=== PATIENT | female | born 1955 | race Caucasian/White ===

== ENCOUNTER 2021-01-30 21:09 | Inpatient (IN) | payer MEDICARE ==
[~2021-01-30] VITALS: Ht 162.6 cm; Wt 117.9 kg
--- NOTE | ~2021-01-30 | OP ---
PATIENT NAME: ISABELL FIELDS MEDICAL RECORD: [id number] :51 LOCATION:[facility] [id number] ADMISSION DATE:01/31/21 SURGEON: PETRA BRUCE MD DATE OF OPERATION: 02/01/2021 PREOPERATIVE DIAGNOSIS: Left proximal humerus fracture (4-part). POSTOPERATIVE DIAGNOSIS: Left proximal humerus fracture (4-part). PROCEDURE PERFORMED: Left reverse total shoulder arthroplasty. INDICATIONS FOR THE PROCEDURE: Ms. Fields is a 65-year-old female who fell this past weekend and sustained a comminuted fracture of the proximal humerus. X-rays and CT scan showed evidence of a 4-part fracture with displacement of the tuberosities. She was admitted and arrangements made for her to come to the operating room today for ORIF of the fracture versus reverse total shoulder arthroplasty. Risks, benefits and alternatives of surgery were discussed with the patient and consent was obtained. DESCRIPTION OF THE PROCEDURE: The patient was met in the holding area where her identity and confirmation of procedure was performed. The left upper extremity was marked. She was taken to the operating room where she was placed supine on the operating table and anesthesia was administered. She was then positioned in the beach chair position and extremities were positioned and padded appropriately. The left upper extremity was prepped and draped in a sterile fashion. The patient received preoperative antibiotics and timeout was performed before initiating the case. On initiation of the case, a deltopectoral approach was utilized for exposure. We incised through skin and subcutaneous tissues, dissecting down to the cephalic vein. The interval between the deltoid and pectoralis muscle was then identified and utilized for a deep exposure. We continued our dissection down to the proximal humerus. There was noted to be a significant comminution of the tuberosities with impaction of the shaft into the humeral head. There was displacement of the humeral head as well. Tissue from around this area was debrided including the fracture hematoma. I attempted to achieve a reduction, but given the amount of comminution, I was unsuccessful and we therefore elected to proceed with a reverse total shoulder arthroplasty. Humeral head was removed as well as pieces of the tuberosities. Tissue from around the inferior border of the glenoid around the edge of the shaft was released to allow for full exposure of our glenoid. Once the bony pieces were removed, sutures were placed in the superior and anterior aspect of the rotator cuff. Our shaft was then retracted and the arm was positioned in externally rotated position as we began preparing the shaft. We reamed up sequentially to a size [address] 8 humeral fracture stem. We then turned our attention to the glenoid, retractors were repositioned around the glenoid, tissue from around the edges were debrided. We then placed our central guidewire using the alignment guide and overreamed. Our glenosphere baseplate was then placed and tapped into position securely tightened down with the screw. We then placed screws superior and inferior as well. The anterior and posterior screws did not have much bony bite and therefore were left open. Our glenosphere was then attached and placed in the inferior offset position. It was tapped into place, had good fit at the glenoid. We then turned our attention back to the humerus. Our trial stem was placed and we attempted to trial with the baseplate, but there was a little bit too much tension. It was sitting at 5 and we therefore elected to go ahead and place our fracture stem and seated at a 3 position, which would then give us OPERATIVE REPORT [id number] ISABELL FIELDS more ability to reduce the shoulder and yet still have good stability. The humeral shaft was prepared using the brush and drying sponge. Cement was then placed into the shaft and our size 8 humeral stem was placed down to the level 3 and held in appropriate alignment while the cement was allowed to dry. Once the cement was dry, we then were able to trial it with a standard humeral tray starting with the neutral baseplate and then going up to a +3 at which point, we had good fit and stability at the glenosphere. This was our final component. The trial was removed and our baseplate was tapped into place. It was again reduced, had good fit and stability throughout range of motion. The shoulder was irrigated thoroughly with saline. Tissue from the rotator cuff superiorly and the subscapularis anteriorly were sutured back to the stem and tied down securely. A gram of vancomycin powder was then placed in the deep wound. The deltopectoral interval was closed with 2-0 Vicryl suture. The subcutaneous tissues were closed with Vicryl and the skin was closed with Monocryl. Prineo Dermabond dressing was placed and covered with a sterile dressing. The patient was placed into a sling, turned back over to anesthesia where she was awakened, extubated, and taken to recovery room in stable condition. POSTOPERATIVE PLAN: The patient is going to return to the floor for continued postoperative care. She needs to remain nonweightbearing on the left upper extremity with instructions for no shoulder range of motion at this time. She can come out of the sling for general hygiene and to perform elbow, wrist and hand range of motion. Physical therapy will be consulted to assist with mobility. PLAN: Home with the family upon discharge. COMPLICATIONS: None. ESTIMATED BLOOD LOSS: 400 mL. ANESTHESIA: General with peripheral nerve block. TRANSINT:[id number] Voice Confirmation ID: [id number] DOCUMENT ID: [id number] PETRA BRUCE MD CC: [id number] DICTATION DATE: 02/01/212118 IT ASSISTANT: 02/02/21 0504 [facility] [place] [id number] [place] [address]
[2021-01-30] MEDS ORDERED: HYDROCHLOROTH12.5 M1 PO (21:21)
[2021-01-30] MEDS ORDERED: UNKNOWN B/P MED (21:21)
[2021-01-30] MEDS ORDERED: ZOLOFT50 MG PO (21:22)
[2021-01-30] MEDS ORDERED: IRON (21:22)
[2021-01-30 22:46] LABS: BASOPHILS 0.2 % (0-2); EOSINOPHILS 0.9 % (0-7); HEMATOCRIT 35.5 % (36.0-48.0); HEMOGLOBIN 11.7 g/dL (12-16); IMMATURE GRANULOCYTES 0.3 % (0-5); LYMPHOCYTE ABS# 1.31 10x3/uL (1.18-3.74); LYMPHOCYTES 13.5 % (15-50); MCH 29.8 pg (26.0-34.0); MCV 90.6 fL (80.0-100.0); MEAN PLATELET VOLUME 8.3 fL (7.4-10.4); NEUTROPHIL ABS# 7.49 10x3/uL (1.56-6.13); NEUTROPHILS 77.1 % (40-80); PLATELET COUNT 200 10x3/uL (130-400); RBC 3.92 10x6/uL (4.00-5.40); RDW 14.6 % (11.5-14.5); WBC 9.7 10x3/uL (4.8-10.8)
[2021-01-30 22:52] LABS: ANION GAP 12.9 mmol/L (8-16); APTT 31.8 SECONDS (22.8-39.4); CALCIUM 8.8 mg/dL (8.5-10.1); CARBON DIOXIDE 26.4 mmol/L (21.0-32.0); CREATININE - SERUM 0.9 mg/dL (0.6-1.3); INR 1.06 (0.85-1.17); POTASSIUM - SERUM 3.3 mmol/L (3.5-5.1); PROTIME 12.8 SECONDS (11.6-15.0)
[2021-01-30 22:56] LABS: ALBUMIN 3.5 g/dL (3.4-5.0); BILIRUBIN - TOTAL 0.3 mg/dL (0.2-1.3); PROTEIN - SERUM 7.2 g/dL (6.4-8.2)
--- NOTE | 2021-01-30 23:06 | NUR ---
PATIENT'S DAUGHTER'S PHONE NUMBER [id number]
--- NOTE | 2021-01-31 01:37 | NUR ---
RECIEVED REPORT FROM IZABEL PRADO ASSUMED PT CARE
--- NOTE | 2021-01-31 02:20 | NUR ---
RECEIVED PT TO FLOOR VIA STRETCHER. PT AMBULATED FROM STRETCHER TO BED. LEFT SHOULDER SWOLLEN WITH IMPAIRED ROM. CHANGED PT INTO GOWN. PLACED SCD'S AND NON-SKID SOCKS ON PT. REVIEWED HOME MEDS AND HISTORY. PT AMBULATED TO BATHROOM INDEPENDENTLY AND VOIDED. PT IS ALERT & ORIENTED. RATE PAIN 4/10 AT THIS TIME. NO OTHER NEEDS. WILL CONTINUE TO MONITOR.
[2021-01-31] MEDS ORDERED: BENICAR20 MG PO (02:32)
[2021-01-31] MEDS ORDERED: FERROUS SULFAT325 MG PO (02:33)
[2021-01-31] MEDS ORDERED: TUMS X-STR300 MG PO (02:36)
[2021-01-31] MEDS ORDERED: ACETAMINOPHEN500 M1 PO (02:37)
[2021-01-31 03:14] VITALS: BP 109/50; Ht 162.6 cm; Wt 117.9 kg
[2021-01-31 05:07] VITALS: BP 143/77
[2021-01-31 07:04] LABS: ALBUMIN 3.4 g/dL (3.4-5.0); ALKALINE PHOSPHATASE 60 U/L (30-120); ALT (SGPT) 21 U/L (10-68); BILIRUBIN - TOTAL 0.59 mg/dL (0.2-1.3); CALC OSMOLALITY 270 mosm/kg (275-300); CALCIUM 8.4 mg/dL (8.5-10.1); CARBON DIOXIDE 20.6 mmol/L (21.0-32.0); CHLORIDE - SERUM 101 mmol/L (98-107); GLUCOSE 117 mg/dL (74-106); MAGNESIUM - SERUM 1.8 mg/dL (1.8-2.4); PHOSPHOROUS 3.4 mg/dL (2.5-4.9); PROTEIN - SERUM 6.7 g/dL (6.4-8.2); SODIUM 134 mmol/L (136-145); UREA NITROGEN 17 mg/dL (7-18)
[2021-01-31 07:06] LABS: BASOPHILS 0.1 % (0-2); EOSINOPHILS 0.4 % (0-7); HEMATOCRIT 32.4 % (36.0-48.0); HEMOGLOBIN 10.6 g/dL (12-16); IMMATURE GRANULOCYTES 0.2 % (0-5); LYMPHOCYTE ABS# 1.52 10x3/uL (1.18-3.74); MCH 29.9 pg (26.0-34.0); MCHC 32.7 g/dL (31.0-37.0); MCV 91.5 fL (80.0-100.0); MEAN PLATELET VOLUME 9.1 fL (7.4-10.4); MONOCYTES 8.9 % (2-11); NEUTROPHIL ABS# 6.54 10x3/uL (1.56-6.13); NEUTROPHILS 73.4 % (40-80); PLATELET COUNT 201 10x3/uL (130-400); RBC 3.54 10x6/uL (4.00-5.40); RDW 14.6 % (11.5-14.5); WBC 8.9 10x3/uL (4.8-10.8)
[2021-01-31 07:09] LABS: CREATININE - SERUM 0.6 mg/dL (0.6-1.3); POTASSIUM - SERUM 4.7 mmol/L (3.5-5.1); eGFR NON AFRICAN AMERICAN > 90 mL/min (90-120)
[2021-01-31 08:04] LABS: APTT 30.1 SECONDS (22.8-39.4); INR 1.14 (0.85-1.17); PROTIME 13.5 SECONDS (11.6-15.0)
[2021-01-31 09:17] VITALS: BP 152/94
[2021-01-31 12:04] VITALS: BP 156/69
[2021-01-31 16:49] VITALS: BP 157/75
--- NOTE | 2021-01-31 16:49 | NUR ---
URINE SENT TO THE LAB. EKG AND CONSENTS DONE AND PLACED ON THE CHART.
[2021-01-31 17:35] LABS: BILIRUBIN NEGATIVE (NEGATIVE); KETONE NEGATIVE (NEGATIVE); NITRITE NEGATIVE (NEGATIVE); UROBILINOGEN NORMAL mg/dL (< 2)
[2021-01-31 17:38] LABS: AMORPHOUS SEDIMENT MANY LPF (NONE SEEN); BACTERIA FEW HPF (NONE SEEN); SQUAMOUS EPITHELIAL 0-5 HPF (0-4); WHITE CELLS - URINE 0-5 HPF (0-4)
[2021-01-31 20:22] VITALS: BP 155/83
[2021-02-01] VITALS (14 sets, daily range): BP systolic 119–171; BP diastolic 66–88
--- NOTE | 2021-02-01 06:30 | NUR ---
HARPREET BATH AND BED CHANGE COMPLETED BY CHRISTINE GARCÍA.
[2021-02-01 06:48] LABS: BASOPHILS 0.3 % (0-2); EOSINOPHILS 1.9 % (0-7); HEMATOCRIT 31.8 % (36.0-48.0); HEMOGLOBIN 10.2 g/dL (12-16); IMMATURE GRANULOCYTES 0.1 % (0-5); LYMPHOCYTE ABS# 1.51 10x3/uL (1.18-3.74); MCH 29.7 pg (26.0-34.0); MCHC 32.1 g/dL (31.0-37.0); MCV 92.7 fL (80.0-100.0); MEAN PLATELET VOLUME 8.7 fL (7.4-10.4); MONOCYTES 11.1 % (2-11); NEUTROPHILS 65.6 % (40-80); PLATELET COUNT 180 10x3/uL (130-400); RBC 3.43 10x6/uL (4.00-5.40); RDW 14.8 % (11.5-14.5); WBC 7.2 10x3/uL (4.8-10.8)
[2021-02-01 06:52] LABS: CALC OSMOLALITY 275 mosm/kg (275-300); CALCIUM 8.5 mg/dL (8.5-10.1); CHLORIDE - SERUM 102 mmol/L (98-107); CREATININE - SERUM 0.7 mg/dL (0.6-1.3); GLUCOSE 112 mg/dL (74-106); MAGNESIUM - SERUM 2.1 mg/dL (1.8-2.4); PHOSPHOROUS 3.2 mg/dL (2.5-4.9); SODIUM 137 mmol/L (136-145); UREA NITROGEN 16 mg/dL (7-18); eGFR NON AFRICAN AMERICAN 88 mL/min (90-120)
[2021-02-01 06:54] LABS: CARBON DIOXIDE 28.8 mmol/L (21.0-32.0); POTASSIUM - SERUM 3.7 mmol/L (3.5-5.1)
--- NOTE | 2021-02-01 08:00 | NUR ---
ASSESSMENT PER FLOW SHEET. PATIENT IS WITHOUT DISTRESS.NPO FOR SURGRY.MONITOR
--- NOTE | 2021-02-01 12:30 | NUR ---
TO OR VIA BED
--- NOTE | 2021-02-01 15:00 | NUR ---
CALL FORM DAUGHTER, PASSSWORD CONFIRMED. DAUGHTER INSTRUCTED PATIENT IS STILL OFF UNIT FOR PROCEDURE.
--- NOTE | 2021-02-01 18:11 | NUR ---
BACK TO ROOM. VSS SEE GRAPHICS. PATIENT AWAKENS TO NAME.LEFT ARM IN BRACE WITH ICE PACK IN PLACE.PATIENT WITHOUT SIGNS OF PAIN.
--- NOTE | 2021-02-01 18:16 | NUR ---
CALL FROM DAUGHTER. PASSWORD CONFIRMED. PATIENT UPDATE GIVEN.
[2021-02-02] VITALS (7 sets, daily range): BP systolic 91–147; BP diastolic 41–74
[2021-02-02 05:21] LABS: ANION GAP 14.4 mmol/L (8-16); CALCIUM 7.6 mg/dL (8.5-10.1); CARBON DIOXIDE 23.9 mmol/L (21.0-32.0); MAGNESIUM - SERUM 2.1 mg/dL (1.8-2.4); PHOSPHOROUS 3.8 mg/dL (2.5-4.9)
[2021-02-02 05:24] LABS: BASOPHILS 0.1 % (0-2); EOSINOPHILS 0.1 % (0-7); HEMATOCRIT 26.5 % (36.0-48.0); HEMOGLOBIN 8.2 g/dL (12-16); IMMATURE GRANULOCYTES 0.3 % (0-5); LYMPHOCYTES 17.2 % (15-50); MCH 29.2 pg (26.0-34.0); MCHC 30.9 g/dL (31.0-37.0); MCV 94.3 fL (80.0-100.0); MEAN PLATELET VOLUME 8.8 fL (7.4-10.4); MONOCYTES 12.3 % (2-11); PLATELET COUNT 152 10x3/uL (130-400); RBC 2.81 10x6/uL (4.00-5.40); RDW 14.8 % (11.5-14.5); WBC 7.6 10x3/uL (4.8-10.8)
[2021-02-02 05:28] LABS: POTASSIUM - SERUM 4.3 mmol/L (3.5-5.1)
--- NOTE | 2021-02-02 07:03 | NUR ---
Patient had tingling in her left hand, said her pain has not been over a 3 controlled with the prescribed pain medication.
--- NOTE | 2021-02-02 08:00 | NUR ---
ASSESSMENT PER FLOW SHEET. PATIENT IS WITHOUT DISTRESS.MONITOR
--- NOTE | 2021-02-02 14:53 | NUR ---
IV SITED TO RIGHT FOREARM X2 STICKS,20G. ABX AND MEDS ORDERED PER MAR
--- NOTE | 2021-02-02 19:26 | NUR ---
HAS REMAINED WITHOUT CHANGE TODAY. CONT PLAN OF CARE
[2021-02-03 00:27] VITALS: BP 108/46
--- NOTE | 2021-02-03 02:10 | NUR ---
Patient has had pain managed with the prescribed Toradol, she voiced no concerns, up to the restroom with one assist, she is currently resting in bed with her eyes closed.
[2021-02-03 04:00] VITALS: BP 145/71
[2021-02-03 06:14] LABS: BASOPHILS 0.2 % (0-2); EOSINOPHILS 2.6 % (0-7); HEMATOCRIT 25.7 % (36.0-48.0); IMMATURE GRANULOCYTES 0.2 % (0-5); LYMPHOCYTE ABS# 1.41 10x3/uL (1.18-3.74); LYMPHOCYTES 17.5 % (15-50); MCHC 31.1 g/dL (31.0-37.0); MCV 93.1 fL (80.0-100.0); MEAN PLATELET VOLUME 8.8 fL (7.4-10.4); MONOCYTES 11.9 % (2-11); NEUTROPHIL ABS# 5.44 10x3/uL (1.56-6.13); NEUTROPHILS 67.6 % (40-80); RBC 2.76 10x6/uL (4.00-5.40); RDW 14.9 % (11.5-14.5); WBC 8.1 10x3/uL (4.8-10.8)
[2021-02-03 06:15] LABS: PLATELET COUNT 198 10x3/uL (130-400)
[2021-02-03 06:28] LABS: ANION GAP 11.5 mmol/L (8-16); CALCIUM 8.6 mg/dL (8.5-10.1); CARBON DIOXIDE 26.2 mmol/L (21.0-32.0); CREATININE - SERUM 1.1 mg/dL (0.6-1.3); MAGNESIUM - SERUM 2.2 mg/dL (1.8-2.4); PHOSPHOROUS 3.4 mg/dL (2.5-4.9); POTASSIUM - SERUM 3.7 mmol/L (3.5-5.1)
[2021-02-03 07:56] VITALS: BP 143/53
--- NOTE | 2021-02-03 10:30 | MORECARE ---
CASE MANAGEMENT DISCHARGE SUMMARY PATIENT: ISABELL FIELDS UNIT: [id number] ADM DATE: 01/31/21 AGE: 65 : 53 SEX: F ROOM/BED: D.2213 AUTHOR: IGOR,DOC PHYSICIAN: REFERRING PHYSICIAN: JORDAN GARZA MD DATE OF SERVICE: 02/03/21 Discharge Plan Patient Name: ISABELL FIELDS Facility: [facility]:[place] : 1955 Planned Disposition: Home or Self Care Anticipated Discharge Date: Discharge Date: Expected LOS: Initial Reviewer: [id number] Initial Review Date: 01/31/2021 Generated: 02/03/21 11:29 am Comments DCP- Discharge Planning Updated by [email or web address]: Helen Gonzalez on 02/03/21 9:[address] Patient Name: ISABELL FIELDS Admission Status: ER Accout number: [id number] Admission Date: 01-31-2021 : 1955 Admission Diagnosis:UNSP FRACTURE OF UPPER END OF LEFT HUMERUS, INIT FOR CL Attending: MALISSA Current LOS: 3 Anticipated DC Date: Planned Disposition: Home or Self Care Primary Insurance: MEDICARE A & B Discharge Planning Comments: CM met with patient to complete initial dc planning assessment. CM educated patient on the CM role and verbal consent given by patient to complete assessment. Patient lives at home with her where she states she is independent with her care. At discharge patient plans to return home and feels this is a safe discharge. CM discussed availability of home health, rehab services, and medical equipment. She denies any needs and did not want home health. IMM served and explained, declination for home health also obtained and signed and placed in chart. Her daughter, Margaret, will be her roll off driver home. Patient denied known discharge needs at this time. CM will continue to follow and will assist as needed with dc plans/needs Cell Preparer: Helen Gonzalez DCPIA - Discharge Planning Initial Assessment Updated by [email or web address]: Helen Gonzalez on 02/03/21 10:25 am * Is the patient Alert and Oriented? Yes * How many steps to enter\exit or inside your home? * PCP PRATIBHA * Pharmacy [facility] * Preadmission Environment Home with Family * ADLs Independent * List name and contact numbers for known caregivers / representatives who currently or will assist patient after discharge: ADILENE FIELDS ( SPOUSE) [phone] * Verbal permission to speak to the caregivers and representatives has been obtained from the patient. N/A * Community resources currently utilized None * Additional services required to return to the preadmission environment? No * Can the patient safely return to the preadmission environment? Yes * Has this patient been hospitalized within the prior 30 days at any hospital? No Coverage Notice Reviewer: [id number] Lelia Sotelo Notice Issued Date-Time: 01/31/2021 17:15 Notice Type: Medicare Outpatient Observation Notice Notice Delivered To: Patient Relationship to Patient: Self Data Steward Name: Delivery Method: HAND - Hand Delivered Lyla Days: Prior Verbal Notification: Recipient Understood Notice: Yes Recipient Signature: Yes Med Rec Note Co-signed by Attending: Coverage Notice Comment: BHATT delivered, explained, signed by the patient, and placed in chart. Signed form also left with the patient. Reviewer: [email or web address] Lelia Gonzalez Notice Issued Date-Time: 02/03/2021 10:10 Notice Type: IM Discharge Notice Notice Delivered To: Patient Relationship to Patient: Data Steward Name: Delivery Method: HAND - Hand Delivered Lyla Days: Prior Verbal Notification: Recipient Understood Notice: Yes Recipient Signature: Yes Med Rec Note Co-signed by Attending: Coverage Notice Comment: imm served Reviewer: [email or web address] Lelia Gonzalez Notice Issued Date-Time: 02/03/2021 10:10 Notice Type: Patient Choice Letter Notice Delivered To: Patient Relationship to Patient: Data Steward Name: Delivery Method: HAND - Hand Delivered Lyla Days: Prior Verbal Notification: Recipient Understood Notice: Yes Recipient Signature: Yes Med Rec Note Co-signed by Attending: Coverage Notice Comment: declined home health Patient Name: ISABELL FIELDS Page [phone] at 1030 All edits/amendments must be made on the electronic document DICTATION DATE: 02/03/21 1029 MANAGER RESPIRATORY CARE: HAYDE 02/03/21 1029 RPT#: [id number] DC DATE: STATUS: ADM IN [facility] [address] [place] [address] END OF REPORT
[2021-02-03 11:39] VITALS: BP 143/58
[2021-02-03] MEDS ORDERED: HYDROCODONE-AC1 EAC2 PO (17:08)
--- NOTE | 2021-02-03 17:45 | NUR ---
PATIENT RECIEVED DC INSTRUCTIONS. VERBALIZED UNDERSTANDING. NO QUESTIONS AT THIS TIME. PRESCRIPTIONS GIVEN TO PATIENT. DAUGHTER AT BEDSIDE. IV REMOVED WITH CATH TIP INTACT. ESCORTED PATIENT OUT OF HOSPITAL VIA WC TO PRIVATE VEHICLE WITH PERSONAL BELONGINGS.
--- NOTE | 2021-02-04 08:02 | MORECARE ---
CASE MANAGEMENT DISCHARGE SUMMARY PATIENT: ISABELL FIELDS UNIT: [id number] ADM DATE: 01/31/21 AGE: 65 : 53 SEX: F ROOM/BED: D.2213 AUTHOR: IGOR,DOC PHYSICIAN: REFERRING PHYSICIAN: JORDAN GARZA MD DATE OF SERVICE: 02/04/21 Discharge Plan Patient Name: ISABELL FIELDS Facility: [facility]:[place] : 1955 Planned Disposition: Home or Self Care Anticipated Discharge Date: Discharge Date: 02/03/2021 Expected LOS: Initial Reviewer: [email or web address] Initial Review Date: 01/31/2021 Generated: 02/04/21 9:01 am Comments DCP- Discharge Planning Updated by [email or web address]: Helen Gonzalez on 02/03/21 9:[address] Patient Name: ISABELL FIELDS Admission Status: ER Accout number: [id number] Admission Date: 01-31-2021 : 1955 Admission Diagnosis:UNSP FRACTURE OF UPPER END OF LEFT HUMERUS, INIT FOR CL Attending: MALISSA Current LOS: 3 Anticipated DC Date: Planned Disposition: Home or Self Care Primary Insurance: MEDICARE A & B Discharge Planning Comments: CM met with patient to complete initial dc planning assessment. CM educated patient on the CM role and verbal consent given by patient to complete assessment. Patient lives at home with her where she states she is independent with her care. At discharge patient plans to return home and feels this is a safe discharge. CM discussed availability of home health, rehab services, and medical equipment. She denies any needs and did not want home health. IMM served and explained, declination for home health also obtained and signed and placed in chart. Her daughter, Margaret, will be her local city driver home. Patient denied known discharge needs at this time. CM will continue to follow and will assist as needed with dc plans/needs Machine Shorthand Teacher: Helen Gonzalez DCPIA - Discharge Planning Initial Assessment Updated by [email or web address]: Helen Gonzalez on 02/03/21 10:25 am * Is the patient Alert and Oriented? Yes * How many steps to enter\exit or inside your home? * PCP PRATIBHA * Pharmacy [facility] * Preadmission Environment Home with Family * ADLs Independent * List name and contact numbers for known caregivers / representatives who currently or will assist patient after discharge: ADILENE FIELDS ( SPOUSE) [phone] * Verbal permission to speak to the caregivers and representatives has been obtained from the patient. N/A * Community resources currently utilized None * Additional services required to return to the preadmission environment? No * Can the patient safely return to the preadmission environment? Yes * Has this patient been hospitalized within the prior 30 days at any hospital? No Coverage Notice Reviewer: [email or web address] Lelia Sotelo Notice Issued Date-Time: 01/31/2021 17:15 Notice Type: Medicare Outpatient Observation Notice Notice Delivered To: Patient Relationship to Patient: Self Prepared Foods Associate Name: Delivery Method: HAND - Hand Delivered Lyla Days: Prior Verbal Notification: Recipient Understood Notice: Yes Recipient Signature: Yes Med Rec Note Co-signed by Attending: Coverage Notice Comment: BHATT delivered, explained, signed by the patient, and placed in chart. Signed form also left with the patient. Reviewer: [email or web address] Lelia Gonzalez Notice Issued Date-Time: 02/03/2021 10:10 Notice Type: IM Discharge Notice Notice Delivered To: Patient Relationship to Patient: Prepared Foods Associate Name: Delivery Method: HAND - Hand Delivered Lyla Days: Prior Verbal Notification: Recipient Understood Notice: Yes Recipient Signature: Yes Med Rec Note Co-signed by Attending: Coverage Notice Comment: imm served Reviewer: [email or web address] Lelia Gonzalez Notice Issued Date-Time: 02/03/2021 10:10 Notice Type: Patient Choice Letter Notice Delivered To: Patient Relationship to Patient: Prepared Foods Associate Name: Delivery Method: HAND - Hand Delivered Lyla Days: Prior Verbal Notification: Recipient Understood Notice: Yes Recipient Signature: Yes Med Rec Note Co-signed by Attending: Coverage Notice Comment: declined home health Last DP export: 02/03/21 9:30 a Patient Name: ISABELL FIELDS Page [phone] at 0802 All edits/amendments must be made on the electronic document DICTATION DATE: 02/04/21 08 SILO WORKER: HAYDE 02/04/21 08 RPT#: [id number] DC DATE:02/03/21 STATUS: DIS IN [facility] [address] [place] [address] END OF REPORT
== END 2021-02-03 18:10 | disposition home or self-care (01) | DRG 483 ==
LOC: D.ER 21:09 → D.EDHOLD 23:42 → D.MS 23:42 → OBSVTIME 23:42 → D.MS 01-31 01:28
PROVIDERS: Family Medicine; Orthopaedic Surgery; ADMIT Family Medicine; ATTEND Family Medicine
PROC: 0RRK00Z Replacement of Left Shoulder Joint with Reverse Ball and Socket Synthetic Substitute, Open Approach (ICD-10-PCS; principal; 2021-02-01 11:00)
DX: S42.202A Unspecified fracture of upper end of left humerus, initial encounter for closed fracture (principal); Z68.41 Body mass index [BMI] 40.0-44.9, adult; W19.XXXA Unspecified fall, initial encounter; I10 Essential (primary) hypertension; E66.01 Morbid (severe) obesity due to excess calories; E87.6 Hypokalemia; D64.9 Anemia, unspecified; F41.8 Other specified anxiety disorders; K21.9 Gastro-esophageal reflux disease without esophagitis; I78.0 Hereditary hemorrhagic telangiectasia